=== PATIENT | female | born 1960 | race African-American/Black ===

== ENCOUNTER 2021-08-25 15:30 | Emergency (ER) | payer MEDICARE ==
[~2021-08-25] VITALS: Ht 162.6 cm; Wt 55.0 kg
[2021-08-26 14:00] VITALS: BP 139/70
== END 2021-08-27 13:17 | disposition home or self-care (01) ==
LOC: ER 15:39
DX: H54.62 Unqualified visual loss, left eye, normal vision right eye (principal); H43.392 Other vitreous opacities, left eye
CPT/HCPCS: 99291